=== PATIENT | female | born 1970 | race Hispanic/Latino ===

== ENCOUNTER 2021-12-14 08:10 | Emergency (ER) | payer OTHER ==
[~2021-12-14] VITALS: Ht 160 cm; Wt 61.2 kg
[2021-12-14 09:43] LABS: URINE BILIRUBIN - DIPSTICK NEGATIVE (NEGATIVE); URINE BLOOD DIPSTICK NEGATIVE (NEGATIVE); URINE COLOR YELLOW; URINE GLUCOSE - DIPSTICK NEGATIVE (NEGATIVE); URINE KETONE NEGATIVE (NEGATIVE); URINE LEUK ESTERASE NEGATIVE (NEGATIVE); URINE PROTEIN - DIPSTICK NEGATIVE (NEG-TRACE); URINE SPECIFIC GRAVITY >=1.030; URINE UROBILINOGEN - DIPSTICK 0.2 E.U./dL (0.2)
[2021-12-14 09:44] LABS: HCG SERUM/URINE (NEG/POS) NEGATIVE (NEGATIVE); URINE NITRITE - DIPSTICK NEGATIVE (Negative)
[2021-12-14] MEDS ORDERED: MOTRIN800 MG PO (10:47)
[2021-12-14] MEDS ORDERED: FLEXERIL5 M1 PO (10:47)
[2021-12-14 11:20] VITALS: BP 108/58
== END 2021-12-14 11:21 | disposition home or self-care (01) ==
LOC: ED 08:10
DX: S29.012A Strain of muscle and tendon of back wall of thorax, initial encounter (principal); E78.5 Hyperlipidemia, unspecified; X58.XXXA Exposure to other specified factors, initial encounter; Z20.822 Contact with and (suspected) exposure to COVID-19

== ENCOUNTER 2025-02-17 19:43 | Emergency (ER) | payer OTHER ==
[~2025-02-17] VITALS: Ht 154.9 cm; Wt 63.0 kg
[~2025-02-17 19:43] MED LIST: CRESTOR20 MG PO; FLEXERIL5 M1 PO; MELOXICAM PO; MOTRIN800 MG PO
[2025-02-17] MEDS ORDERED: IBUPROFEN 800 MG/TAB PO ONE (20:25)
[2025-02-17] MEDS ORDERED: BENZONATATE 200 MG/CAP PO ONE (21:25)
[2025-02-17] MEDS ORDERED: AZITHROMYCIN 250 MG/TAB PO ONE (21:25)
[2025-02-17] MEDS ORDERED: AZITHROMYCIN500 MG PO (21:26)
[2025-02-17] MEDS ORDERED: BENZONATATE200 MG PO (21:26)
[2025-02-17 21:41] VITALS: BP 135/72
== END 2025-02-17 21:41 | disposition home or self-care (01) ==
LOC: ED 19:43
DX: J40 Bronchitis, not specified as acute or chronic (principal); E78.5 Hyperlipidemia, unspecified; Z20.822 Contact with and (suspected) exposure to COVID-19